=== PATIENT | female | born 1930 | race Caucasian/White ===

== ENCOUNTER 2016-03-24 09:58 | Day surgery (SDC) | payer MEDICARE ==
[2016-03-24] MEDS ORDERED: Lidocaine Topical 2% 30 mL Jelly ONE (10:09)
== END 2016-03-24 23:59 | disposition home or self-care (01) ==
LOC: END 09:58
PROVIDERS: ATTEND Internal Medicine Gastroenterology
DX: R13.10 Dysphagia, unspecified (principal)